=== PATIENT | female | born 1995 | race Two or more races ===

== ENCOUNTER 2016-10-07 08:34 | Emergency (ER) | payer SELFPAY ==
[~2016-10-07] VITALS: Ht 157.5 cm; Wt 53.5 kg
[2016-10-07 08:53] VITALS: BP 121/73
== END 2016-10-07 09:51 | disposition home or self-care (01) ==
LOC: ER 08:36
DX: S16.1XXA Strain of muscle, fascia and tendon at neck level, initial encounter (principal); V49.49XA Driver injured in collision with other motor vehicles in traffic accident, initial encounter; Y93.89 Activity, other specified; Y99.8 Other external cause status; Y92.410 Unspecified street and highway as the place of occurrence of the external cause
CPT/HCPCS: 72040

== ENCOUNTER 2022-01-05 13:31 | Inpatient (IN) | payer MEDICAID ==
[~2022-01-05] VITALS: Ht 157.5 cm; Wt 90.3 kg
[2022-01-05] MEDS ORDERED: PHISODERM TOP SOLN 240ML BTL TOP PRN (16:30)
[2022-01-05] MEDS ORDERED: LACTATED RINGER'S 1,000 ML IV SCH (16:30)
[2022-01-05] MEDS ORDERED: BUTORPHANOL TARTRATE 2 MG/1 ML VIAL IV PRN ×2 (16:30)
[2022-01-05] MEDS ORDERED: DERMOPLAST 60ML BOTTLE TOP PRN (16:30)
[2022-01-05] MEDS ORDERED: LIDOCAINE 2%HCL (LOCAL ANESTH.) INJ 10ml MDV IJ PRN ×2 (16:30→18:15)
[2022-01-05] MEDS ORDERED: WITCH HAZEL-GLYCERIN PAD TOP PRN (16:30)
[2022-01-05] MEDS ORDERED: PROMETHAZINE HCL 25 MG/ML 1ML IV PRN (16:30)
[2022-01-05] MEDS ORDERED: PREN-96 PO (16:32)
[2022-01-05 17:01] LABS: Basophils # (auto) 0 10 ^3/uL (0-0.2); Basophils % (auto) 0.2 % (0.0-2.0); Eosinophils # (auto) 0 10 ^3/uL (0-0.8); Eosinophils % (auto) 0.1 % (0.0-7.0); Hematocrit 36.6 % (36.0-46.0); Hemoglobin 12.1 g/dL (12.2-16.2); Lymphocytes # (auto) 1.5 10 ^3/uL (0.4-5.4); Lymphocytes % (auto) 14.1 % (10.0-50.0); Mean Corpuscular Hemoglobin 30.3 pg (28.0-32.0); Mean Corpuscular Hgb Conc. 33.2 g/dL (32.0-36.0); Mean Corpuscular Volume 91.3 fL (80.0-100.0); Monocytes # (auto) 0.6 10 ^3/uL (0-1.3); Monocytes % (auto) 5.7 % (0.0-12.0); Neutrophils # (auto) 8.8 10 ^3/uL (1.6-8.6); Neutrophils % (auto) 79.9 % (37.0-80.0); Red Blood Cells 4.01 10^6/uL (4.0-5.20); Red Cell Distribution Width 13.6 % (11.8-14.3)
[2022-01-05 17:15] LABS: INR 0.91 (0.9-1.15); Partial Thromboplastin Time 29.7 sec (24.6-33.4)
[2022-01-05 17:33] LABS: Albumin 2.6 g/dL (3.4-5.0); Calcium 8.6 mg/dL (8.5-10.1); Potassium 3.6 mmol/L (3.5-5.1)
[2022-01-05 17:36] LABS: BUN/Creatinine Ratio 15.9; Bilirubin, Total 0.4 mg/dL (0.2-1.0); Total Protein 6.6 g/dL (6.4-8.2)
[2022-01-05] MEDS: SODIUM CHLORIDE 0.9% 1,000 ML IV SCH ×2 (18:28→19:27)
[2022-01-05 18:40] LABS: Urine Bacteria NONE SEEN /hpf (None Seen); Urine Blood 3+ /uL (Negative); Urine WBC 106 /hpf (0 - 5)
[2022-01-05 19:02] LABS: Alcohol, Urine < 3.0 mg/dL (0-10); Amphetamine Screen, Urine NEGATIVE (NEGATIVE); Barbiturate Scree,Urine NEGATIVE (NEGATIVE); Benzodiazephine Screen, Urine NEGATIVE (NEGATIVE); Cannabinoid Screen, Urine NEGATIVE (NEGATIVE); Cocaine Screen, Urine NEGATIVE (NEGATIVE); Opiate Scree,Urine NEGATIVE (NEGATIVE); Phencyclidine Screen, Urine NEGATIVE (NEGATIVE)
[2022-01-05] MEDS ORDERED: LACT. RINGERS/OXYTOCIN 20UNITS 500 ML IV ONE ×2 (19:15→19:45)
[2022-01-05] MEDS ORDERED: TERBUTALINE SULFATE 1 MG/ML 1ML VIAL SC PRN (19:15)
[2022-01-05] MEDS ORDERED: ONDANSETRON HCL 4 MG/2 ML VIAL IV PRN (19:15)
[2022-01-05] MEDS ORDERED: miSOPROStol 100 mcg TAB SL PRN (19:15)
[2022-01-05] MEDS ORDERED: LACT. RINGERS/OXYTOCIN 20UNITS 1,000 ML IV SCH (19:15)
[2022-01-05] MEDS ORDERED: METHYLERGONOVINE MALEATE 0.2 MG/ML AMP IM PRN (19:15)
[2022-01-05] MEDS ORDERED: miSOPROStol 100 mcg TAB PR PRN (19:15)
[2022-01-05] MEDS ORDERED: CARBOPROST TROMETHAMINE 250 MCG/1ML VIAL IM PRN (19:15)
[2022-01-05] MEDS ORDERED: DIPHENOXYLATE W/ATROPINE 2.5 MG TAB PO SCH (22:00)
[2022-01-05] MEDS ORDERED: LIDOCAINE 2%HCL (LOCAL ANESTH.) INJ 20ML MDV ONE ×2 (22:10→22:12)
[2022-01-06] MEDS ORDERED: ACETAMINOPHEN 325 MG TAB PO PRN (03:15)
[2022-01-06] MEDS ORDERED: ONDANSETRON ODT 4 MG TAB PO PRN (03:15)
[2022-01-06 03:28] VITALS: BP 113/66
[2022-01-06 07:15] VITALS: BP 99/63
[2022-01-06 11:00] VITALS: BP 106/62
[2022-01-06 15:00] VITALS: BP 116/71
[2022-01-06] MEDS: IBUPROFEN 600 MG TAB PO PRN (18:37)
[2022-01-06 19:30] VITALS: BP 117/73
[2022-01-06] MEDS ORDERED: DOCUSATE SOD 100 MG CAP PO SCH (22:00)
[2022-01-06 23:04] VITALS: BP 105/63
[2022-01-07 03:00] VITALS: BP 113/72
[2022-01-07 05:06] LABS: RPR Non Reactive (Non Reactive)
[2022-01-07 07:00] VITALS: BP 101/72
[2022-01-07] MEDS: IBUPROFEN 600 MG TAB PO PRN (07:13)
[2022-01-07 11:00] VITALS: BP 109/67
[2022-01-07 12:18] VITALS: BP 109/67
== END 2022-01-07 12:18 | disposition home or self-care (01) | DRG 560 ==
LOC: LDRP 13:31 → UNDOADMOB 13:31 → OBSVTOIN 16:10 → INTOOBSV 16:10 → OBSVTOIN 16:36 → LDRP 16:36 → UNDODISIN 01-07 12:18
PROVIDERS: ADMIT Obstetrics & Gynecology; ATTEND Obstetrics & Gynecology
PROC: 10E0XZZ Delivery of Products of Conception, External Approach (ICD-10-PCS; principal; 2022-01-05)
PROC: 0KQM0ZZ Repair Perineum Muscle, Open Approach (ICD-10-PCS; 2022-01-05)
DX: O69.81X0 Labor and delivery complicated by cord around neck, without compression, not applicable or unspecified (principal); Z37.0 Single live birth; O70.1 Second degree perineal laceration during delivery; Z20.822 Contact with and (suspected) exposure to COVID-19; O77.0 Labor and delivery complicated by meconium in amniotic fluid; Z3A.39 39 weeks gestation of pregnancy
CPT/HCPCS: 36415; 59025; 59409; 80053; 80307; 81001; 85025; 85610; 85730; 86592; 86850; 86900; 86901; 94760; 94762; 96360; 96361; 96365; 96366; 96372; 96374; G0378; J2590